=== PATIENT | female | born 1990 | race Caucasian/White ===

== ENCOUNTER 2016-08-31 21:07 | Emergency (ER) | payer MEDICAID ==
[~2016-08-31] VITALS: Ht 162.6 cm; Wt 93.5 kg
[~2016-08-31 21:07] MED LIST: PREN1TAB49 PO
[2016-08-31 21:10] VITALS: Ht 162.6 cm; Wt 93.5 kg
[2016-08-31] MEDS ORDERED: ONDANSETRON (ODT) 4 MG TAB ODT STA (23:12)
--- NOTE | 2016-08-31 23:41 | ERD ---
ER Documentation Chief Complaint Date/Time DATE: 08/31/16 TIME: 23:40 Chief Complaint RUQ abd. pain, diarrhea/charles/nausea since this am, hx of cholecystectomy. HPI 26-year-old female presents to emergency department for complaints of right upper quadrant abdominal pain, diarrhea headache nausea started this morning. Patient described the pain as sharp pain, 6/10 scale, accompanied with headache diarrhea and nausea. Patient denies any vomiting. Patient did not take any medications of her symptoms. Patient denies any flank pain. Patient denies hematuria or dysuria. Patient denies any sick contacts. Patient has a history of cholecystectomy done 6 years ago. ROS All systems reviewed and are negative except as per history of present illness. Medications Home Meds Reported Medications Vits W-Ca,Fe,Fa(<1MG) () 1 Tab Tablet, 1 PO DAILY 11/12/11 Allergies Allergies: Coded Allergies: Penicillins (Verified Allergy, Mild, 06/21/11) PMhx/Soc History of Surgery: Yes (Cholecystectomy) Anesthesia Reaction: No Hx Neurological Disorder: No Hx Respiratory Disorders: No Hx Cardiac Disorders: No Hx Psychiatric Problems: No Hx Miscellaneous Medical Probl: No Hx Alcohol Use: No Hx Substance Use: No Hx Tobacco Use: No Smoking Status: Never smoker FmHx Family History: No coronary disease, No diabetes, No other Physical Exam Vitals Vital Signs Date Time Temp Pulse Resp B/P Pulse Ox O2 Delivery O2 Flow Rate FiO2 08/31/16 21:10 97.9 90 20 139/75 100 Physical Exam GENERAL: The patient is well developed and appropriate for usual state of health, in no apparent distress. CHEST: Clear to auscultation bilaterally. There are no rales, wheezes or rhonchi. HEART: Regular rate and rhythm. No murmurs, clicks, rubs or gallops. No S3 or S4. ABDOMEN: Soft, nontender and nondistended. Good bowel sounds. No rebound or guarding. No gross peritonitis. No gross organomegaly or masses. No Rivers sign or McBurney point tenderness. BACK: No midline or flank tenderness. EXTREMITIES: Equal pulses bilaterally. There is no peripheral clubbing, cyanosis or edema. No focal swelling or erythema. Full range of motion. Grossly neurovascularly intact. NEURO: Alert and oriented. Cranial nerves 2-12 intact. Motor strength in all 4 extremities with 5/5 strength. Sensation grossly intact. Normal speech and gait. SKIN: There is no apparent rash or petechia. The skin is warm and dry. HEMATOLOGIC AND LYMPHATIC: There is no evidence of excessive bruising or lymphedema. No gross cervical, axillary, or inguinal lymphadenopathy. Result Diagram: 08/31/168 08/31/168 Results 24 hrs Laboratory Tests Test 08/31/16 23:38 08/31/16 23:59 Alanine Aminotransferase (ALT/SGPT) 23IU/L Albumin 4.4g/dl Albumin/Globulin Ratio 1.41 Alkaline Phosphatase 91IU/L Anion Gap 16 Aspartate Amino Transf (AST/SGOT) 16IU/L Basophils # 0.110^3/ul Basophils % 0.7% Blood Urea Nitrogen 12mg/dl Calcium Level 9.3mg/dl Carbon Dioxide Level 29mmol/L Chloride Level 101mmol/L Creatinine 0.63mg/dl Direct Bilirubin 0.00mg/dl Eosinophils # 0.410^3/ul Eosinophils % 3.5% Globulin 3.10g/dl Glucose Level 93mg/dl Hematocrit 39.1% Hemoglobin 13.4g/dl Indirect Bilirubin 0.1mg/dl Lipase 87U/L Lymphocytes # 3.310^3/ul Lymphocytes % 27.3% Mean Corpuscular Hemoglobin 29.4pg Mean Corpuscular Hemoglobin Concent 34.3g/dl Mean Corpuscular Volume 85.8fl Mean Platelet Volume 8.4fl Monocytes # 0.910^3/ul Monocytes % 7.1% Neutrophils # 7.410^3/ul Neutrophils % 61.4% Nucleated Red Blood Cells # 0.010^3/ul Nucleated Red Blood Cells % 0.0/100WBC Platelet Count 56518^3/UL Potassium Level 3.9mmol/L Red Blood Count 4.5610^6/ul Red Cell Distribution Width 13.3% Sodium Level 142mmol/L Total Bilirubin 0.1mg/dl Total Protein 7.5g/dl White Blood Count 12.110^3/ul Urine Bacteria MODERATE Urine Bilirubin NEGATIVE Urine Clarity SL HAZY Urine Color LT. YELLOW Urine Glucose NEGATIVE% Urine Hemoglobin 1+ Urine Ketones NEGATIVE Urine Leukocyte Esterase 3+ Urine Microscopic RBC 5-10/HPF Urine Microscopic WBC >50/HPF Urine Nitrite NEGATIVE Urine Specific [place] 1.010 Urine Squamous Epithelial Cells MANY Urine Total Protein NEGATIVE Urine Urobilinogen 0.2 E.U./dL Urine Yeast OCCASIONAL Urine pH 6.0 Current Medications Medications (Trade) Dose Ordered Sig/Rissa Route PRN Reason Start Time Stop Time Status Last Admin Dose Admin Ondansetron HCl (Zofran Odt) 4 mg ONCE STAT ODT 08/31/16 23:12 08/31/16 23:14 DC 08/31/16 23:39 Patient was given Zofran here in the emergency department. After treatment, patient was able to tolerate po fluids here in the emergency department without any vomiting. There is no signs and symptoms of dehydration. PROCEDURE: US Abdomen (right upper quadrant). CLINICAL INDICATION: Abdominal pain, rule out bile duct stone TECHNIQUE: Multiple real-time longitudinal and transverse images of the right upper quadrant of the abdomen were acquired utilizing a curved array transducer. Images were reviewed on a high-resolution PACS workstation. COMPARISON: 09/26/2009 FINDINGS: Minimal diffuse increased hepatic echogenicity most suggestive of minimal hepatic steatosis. The length of the right lobe of the liver equals 16.8 cm, within normal limits. There is normal hepatopedal flow within the main portal vein. The patient is status post cholecystectomy. No intra or extrahepatic biliary dilatation is seen. The common bile duct measures 5 mm in maximal dimension. The pancreas is not seen due to bowel gas. No free fluid is identified. The right kidney measures 11.1 cm in length. There is normal echogenicity within the right kidney. There is no perinephric fluid collection. No hydronephrosis, mass, or calculus is seen. IMPRESSION: Status post cholecystectomy. Pancreas not seen. Minimal diffuse increased hepatic echogenicity most suggestive of minimal hepatic steatosis again seen. Common bile duct diameter within normal limits. No choledocholithiasis is seen on ultrasound. RPTAT: HJES .Flavio Arreguin MD, MD Date Time Electronically viewed and signed by .Flavio Arreguin MD, MD on 08/31/2016 23:57 .S/ CC: NAVEED CARRASCO [employer] Procedures/MDM Medical Decision Making: Patient's symptoms of abdominal pain and diarrhea most active consistent with acute gastroenteritis. Patient dysuria most active consistent with urinary tract infection. No symptoms of pyelonephritis at this time. No choledocholithiasis noted. Lipase is normal, liver function tests are normal. No gallbladder bile duct dilatation. No symptoms of pancreatitis. There is low suspicion for abdominal emergencies at this time. Patients abdominal exam is normal at this time. Patients radiology exam does not show any abdominal emergencies at this time. There is low suspicion for appendicitis, cholecystitis, abdominal aortic aneurysms or peritonitis at this time. There is low suspicion for sepsis. Patient appears well and is hemodynamically stable. Disposition: Home. Condition: Stable Prescription Bentyl, Zofran, ciprofloxacin, Esmond Instructions: Patient is advised to take medications as prescribed. Patient is advised to rest, increase fluid intake and do brat diet for next 1-2 days and progress as tolerated. Patient is advised that if symptoms are worse, severe abdominal pain, uncontrolled vomiting, high fever, severe flank pain, worst signs and symptoms, to return to the emergency department immediately. Otherwise, patient can follow up with primary care doctor in 5-7 days. Departure Diagnosis: Primary Impression: Acute gastroenteritis Additional Impression: UTI (urinary tract infection) Urinary tract infection type: acute cystitis Hematuria presence: without hematuria Qualified Code: N30.00 - Acute cystitis without hematuria Condition: Stable Patient Instructions: Gastroenteritis, Non-Infectious (Child) (Adult), Understanding Urinary Tract Infections (UTIs) Additional Instructions: Patient is advised to take medications as prescribed. Patient is advised to rest , increase fluid intake and do brat diet for next 1-2 days and progress as tolerated. Patient is advised that if symptoms are worse, severe abdominal pain , uncontrolled vomiting, high fever, severe flank pain, worst signs and symptoms , to return to the emergency department immediately. Otherwise, patient can follow up with primary care doctor in 5-7 days. NAVEED CARRASCO NP Aug 31, 2016 23:41
--- NOTE | 2016-08-31 23:57 | RADRPT ---
PROCEDURE: US Abdomen (right upper quadrant). CLINICAL INDICATION: Abdominal pain, rule out bile duct stone TECHNIQUE: Multiple real-time longitudinal and transverse images of the right upper quadrant of th e abdomen were acquired utilizing a curved array transducer. Images were reviewed on a high-resoluti on PACS workstation. COMPARISON: 09/26/2009 FINDINGS: Minimal diffuse increased hepatic echogenicity most suggestive of minimal hepatic steatosis. The le ngth of the right lobe of the liver equals 16.8 cm, within normal limits. There is normal hepatoped al flow within the main portal vein. The patient is status post cholecystectomy. No intra or extrah epatic biliary dilatation is seen. The common bile duct measures 5 mm in maximal dimension. The pa ncreas is not seen due to bowel gas. No free fluid is identified. The right kidney measures 11.1 cm in length. There is normal echogenicity within the right kidney. There is no perinephric fluid collection. No hydronephrosis, mass, or calculus is seen. IMPRESSION: Status post cholecystectomy. Pancreas not seen. Minimal diffuse increased hepatic echogenicity most suggestive of minimal hepatic steatosis again seen. Common bile duct diameter within normal limits. No choledocholithiasis is seen on ultrasound. RPTAT: HJES .Flavio Arreguin MD, MD Date Time Electronically viewed and signed by .Flavio Arreguin MD, on 08/31/2016 23:57 .S/
[2016-09-01 00:27] LABS: ALBUMIN 4.4 g/dl (3.3-4.9)
[2016-09-01 00:28] LABS: POTASSIUM 3.9 mmol/L (3.5-5.1)
[2016-09-01 00:30] LABS: ALBUMIN/GLOBULIN RATIO 1.41; BILIRUBIN,INDIRECT 0.1 mg/dl (0-1.1); BILIRUBIN,TOTAL 0.1 mg/dl (0.2-1.3); CALCIUM 9.3 mg/dl (8.4-10.2); CREATININE 0.63 mg/dl (0.44-1.00); TOTAL PROTEIN 7.5 g/dl (6.1-8.1)
[2016-09-01 00:45] LABS: BASOPHIL # 0.1 10^3/ul (0.0-0.1); BASOPHILS % 0.7 % (0.0-2.0); CONDITION 1; EOSINOPHILS # 0.4 10^3/ul (0.0-0.5); EOSINOPHILS % 3.5 % (0.0-7.0); HEMATOCRIT 39.1 % (37.0-47.0); HEMOGLOBIN 13.4 g/dl (12.0-16.0); LYMPHOCYTES # 3.3 10^3/ul (0.8-2.9); LYMPHOCYTES % 27.3 % (15.0-51.0); MEAN CORPUSCULAR HEMOGLOBIN 29.4 pg (29.0-33.0); MEAN CORPUSCULAR HGB CONC 34.3 g/dl (32.0-37.0); MEAN CORPUSCULAR VOLUME 85.8 fl (82.0-101.0); MEAN PLATELET VOLUME 8.4 fl (7.4-10.4); MONOCYTE # 0.9 10^3/ul (0.3-0.9); MONOCYTES % 7.1 % (0.0-11.0); NEUTROPHIL # 7.4 10^3/ul (1.6-7.5); NEUTROPHILS % 61.4 % (39.0-77.0); PLATELET COUNT 362 10^3/UL (140-440); RED BLOOD COUNT 4.56 10^6/ul (4.20-5.40); RED CELL DISTRIBUTION WIDTH 13.3 % (11.5-14.5); UNCORRECTED WBC 12.1 10^3/ul (4.8-10.8); WHITE BLOOD COUNT 12.1 10^3/ul (4.8-10.8)
[2016-09-01 00:49] LABS: ADD UMIC YES; URINE BILIRUBIN (Dip) NEGATIVE (NEGATIVE); URINE BLOOD (Dip) 1+ (NEGATIVE); URINE COLOR LT. YELLOW (YELLOW); URINE GLUCOSE (Dip) NEGATIVE (NEGATIVE); URINE KETONES (Dip) NEGATIVE (NEGATIVE); URINE LEUKOCYTE ESTERASE (Dip) 3+ (NEGATIVE); URINE NITRITE (Dip) NEGATIVE (NEGATIVE); URINE TOTAL PROTEIN (Dip) NEGATIVE (NEGATIVE); URINE UROBILINOGEN (Dip) 0.2 E.U./dL (0.1-1.0)
[2016-09-01 01:14] LABS: BACTERIA,URINE MODERATE; SQUAMOUS EPITHELIAL CELL,UR MANY
[2016-09-01] MEDS ORDERED: ONDA4TAB14 PO (01:28)
[2016-09-01] MEDS ORDERED: CIPR500T4 PO (01:28)
[2016-09-01] MEDS ORDERED: HYDR-906 PO (01:28)
[2016-09-01] MEDS ORDERED: DICY20TA59 PO (01:28)
[2016-09-01 02:14] VITALS: BP 129/75; PULSE 68; RESP 18; TEMP 97.9
== END 2016-09-01 02:15 | disposition home or self-care (01) ==
LOC: FTE 21:07
DX: K52.9 Noninfective gastroenteritis and colitis, unspecified (principal); N30.00 Acute cystitis without hematuria; R11.0 Nausea
CPT/HCPCS: 36415; 76705; 80053; 81001; 81003; 83690; 85025; Z7502; Z7610